=== PATIENT | male | born 1980 | race Caucasian/White ===

== ENCOUNTER 2018-06-17 21:33 | Emergency (ER) | payer OTHER ==
[~2018-06-17] VITALS: Ht 168 cm; Wt 120.0 kg
[2018-06-17] MEDS ORDERED: NORCO 5-325 TA1 EACH PO (21:48)
[2018-06-17] MEDS ORDERED: LASIX 20 MG TAB20 MG PO (21:48)
[2018-06-17 22:05] LABS: HEMATOCRIT 49.5 % (42.0-52.0); HEMOGLOBIN 16.9 gm/dL (14.0-18.0); MCH 28.5 pg (26.0-34.0); MCHC 34.1 g/dL (28.0-37.0); MCV 83.5 fL (80.0-100.0); NUCLEATED RBCS 0 /100WBC; PLATELET COUNT* 227 thou/uL (150-400); RBC 5.93 mil/uL (4.50-6.00); RDW-CV 14.3 % (10.5-14.5); WBC 10.1 thou/uL (4.0-11.0)
[2018-06-17 22:13] LABS: CALCIUM 9.2 mg/dL (8.5-10.1); CREATININE 1.3 mg/dL (0.6-1.3); POTASSIUM 3.3 mmol/L (3.5-5.1)
[2018-06-17 22:17] LABS: ALBUMIN 3.9 g/dL (3.4-5.0); TOTAL BILIRUBIN 1.1 mg/dL (<0.1-1.0); TOTAL PROTEIN 8.2 g/dL (6.4-8.2)
[2018-06-17 22:39] LABS: ABSOLUTE EOSINOPHILS 0.3 thou/uL (0.0-0.7); ABSOLUTE LYMPHOCYTES 4.5 thou/uL (0.8-5.3); ABSOLUTE MONOCYTES 0.8 thou/uL (0.0-1.2); ABSOLUTE NEUTROPHILS 4.4 thou/uL (1.6-8.1)
[2018-06-17 22:41] LABS: LARGE PLATELETS FEW; PLATELET ESTIMATE ADEQUATE
[2018-06-17 23:00] VITALS: BP 180/102
== END 2018-06-17 23:05 | disposition home or self-care (01) ==
LOC: M.ERS 21:33
PROVIDERS: Family Medicine
DX: R51 Headache (principal)